=== PATIENT | female | born 1995 | race Caucasian/White ===

== ENCOUNTER → 2017-08-25 | Outpatient (CLI) | payer OTHER ==
[2017-08-25 16:44] LABS: BASO % 0.2 %; BASO ABS # 0.02 K/uL (0-0.2); EOS % 0.2 %; EOS ABS # 0.02 K/uL (0-0.5); HEMATOCRIT 36.5 % (37-47); IG# 0.02 K/uL (0.00-0.02); LYMPH % 14.5 %; LYMPH ABS # 1.34 K/uL (1.2-3.4); MEAN CELL VOLUME 87.7 fL (80-100); MEAN CORPUSCULAR HEMOGLOBIN 31.3 pg (25-34); MEAN CORPUSCULAR HGB CONC 35.6 g/dl (32-36); MONO % 6.5 %; NEUT % 78.4 %; NEUT ABS # 7.25 K/uL (1.4-6.5); PLATELET COUNT 233 K/uL (130-400); RED CELL DISTRIBUTION WIDTH CV 12.7 % (11.5-14.5); RED CELL DISTRIBUTION WIDTH SD 40.9 fL (36.4-46.3); WHITE BLOOD COUNT 9.25 K/uL (4.8-10.8)
== END | disposition home or self-care (01) ==
LOC: C.LAB1850 15:05
PROVIDERS: ATTEND Obstetrics & Gynecology
DX: Z34.01 Encounter for supervision of normal first pregnancy, first trimester (principal)

== ENCOUNTER → 2017-08-25 | Outpatient (CLI) | payer OTHER | END | disposition home or self-care (01) | LOC: C.PAPS 11:02 | PROVIDERS: ATTEND Obstetrics & Gynecology | DX: Z34.01 Encounter for supervision of normal first pregnancy, first trimester (principal) ==